=== PATIENT | female | born 2000 | race African-American/Black ===

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

== ENCOUNTER 2022-01-16 08:56 | Emergency (ER) | payer MEDICAID ==
[2022-01-16] MEDS ORDERED: Ondansetron 4 MG/2 ML SDV IVPUSH ONE (09:19)
[2022-01-16] MEDS ORDERED: Sodium Chloride 0.9% 1,000 ML IV ONE (09:19)
[2022-01-16 09:58] LABS: CORONAVIRUS COVID-19 NAA NEGATIVE (NEGATIVE)
== END 2022-01-16 10:17 | disposition home or self-care (01) ==
LOC: VM.ED 08:56
DX: J10.1 Influenza due to other identified influenza virus with other respiratory manifestations (principal); Z20.822 Contact with and (suspected) exposure to COVID-19
CPT/HCPCS: 0240U; 96361; 96374; 99283; 99284-25; J2405; J7030

== ENCOUNTER 2022-01-17 13:23 | Emergency (ER) | payer MEDICAID ==
[2022-01-17] MEDS ORDERED: Sodium Chloride 0.9% 1,000 ML IV ONE (13:45)
[2022-01-17] MEDS ORDERED: Ketorolac 15 MG/ML SDV IVPUSH ONE (13:46)
[2022-01-17] MEDS ORDERED: Ondansetron 4 MG/2 ML SDV IVPUSH ONE (13:49)
[2022-01-17 14:35] LABS: CHLORIDE,CL 101 mmol/L (98-107); SODIUM,NA 137 mmol/L (136-145)
[2022-01-17 14:43] LABS: ANION GAP 15.1 mmol/L (5-15); ESTIMATED GFR 74 mL/min (>=60)
== END 2022-01-17 15:41 | disposition home or self-care (01) ==
LOC: VM.ED 13:23
DX: J10.1 Influenza due to other identified influenza virus with other respiratory manifestations (principal)
CPT/HCPCS: 36415; 80053; 81003; 85025; 86140; 96361; 96374; 96375; 99283; 99284-25; J1885; J2405; J7030

== ENCOUNTER 2022-09-29 18:55 | Emergency (ER) | payer MEDICAID ==
[2022-09-29] MEDS: Sodium Chloride 0.9% 1,000 ML IV ONE (19:30)
[2022-09-29] MEDS: Ondansetron 4 MG/2 ML SDV IVPUSH ONE (19:30)
[2022-09-29 19:33] LABS: BASOPHILS PERCENT AUTO 0.5 % (0.2-1.2); HEMATOCRIT 39.9 % (33.0-47.0); HEMOGLOBIN 14.2 g/dL (12.0-16.0); IMMATURE GRAN ABSOLUTE AUTO 0.02 x10^3/uL (0.00-0.07); LYMPHOCYTES ABSOLUTE AUTO 0.3 x10^3/uL (1.0-4.8); LYMPHOCYTES PERCENT AUTO 4.9 % (25.0-50.0); MEAN CORPUSCULAR HEMOGLOBIN 30.4 pg (26.0-32.0); MEAN CORPUSCULAR HGB CONC 35.6 g/dL (32.0-36.0); MEAN CORPUSCULAR VOLUME 85.4 fL (78.0-93.0); MONOCYTES ABSOLUTE AUTO 0.6 x10^3/uL (0.0-0.8); MONOCYTES PERCENT AUTO 11.6 % (2.0-11.0); NEUTROPHILS ABSOLUTE AUTO 4.6 x10^3/uL (1.8-7.7); NEUTROPHILS PERCENT AUTO 82.6 % (50.0-80.0); PLATELET COUNT,PLT 166 x10^3/uL (130-400); RED BLOOD CELL COUNT 4.67 x10^6/uL (4.00-5.50); WHITE BLOOD CELL COUNT,WBC 5.5 x10^3/uL (4.0-10.0)
[2022-09-29] MEDS: Ibuprofen 200 MG Tab PO ONE (19:34)
[2022-09-29 19:49] LABS: A/G RATIO 1.12; ALBUMIN 3.8 g/dL (3.4-5.0); ANION GAP 20.5 mmol/L (5-15); BILIRUBIN TOTAL 0.8 mg/dL (0.2-1.0); CALCIUM 9.4 mg/dL (8.5-10.1); CREATININE 1.3 mg/dL (0.55-1.02); EST CRCL DRUG DOSING (CG) 56.63 mL/min; POTASSIUM,K 3.5 mmol/L (3.5-5.1); PROTEIN TOTAL,TP 7.2 g/dL (6.4-8.2)
[2022-09-29 20:01] LABS: BILIRUBIN,URINE LARGE (NEGATIVE); COLOR,URINE DARK YELLOW (YELLOW); GLUCOSE,URINE NEGATIVE (NEGATIVE); KETONES,URINE 80 mg/dL (NEGATIVE); LEUKOCYTE ESTERASE,URINE NEGATIVE (NEGATIVE); NITRITE,URINE NEGATIVE (NEGATIVE); OCCULT BLOOD,URINE NEGATIVE (NEGATIVE); PH,URINE >=9.0 (5.0-8.0); PROTEIN,URINE 100 mg/dL (NEGATIVE)
[2022-09-29 20:04] LABS: APPEARANCE,URINE SLIGHTLY CLOUDY (CLEAR)
[2022-09-29 20:10] LABS: BACTERIA,URINE OCCASIONAL /HPF (NOT SEEN); RBC,URINE 0-5 /HPF (NOT SEEN); SQUAMOUS EPITHELIAL CELLS,UR FEW /HPF (NOT SEEN); WBC,URINE 0-5 /HPF (NOT SEEN)
[2022-09-29 20:11] LABS: MUCUS,URINE MODERATE /LPF (NOT SEEN)
[2022-09-29 20:19] LABS: CORONAVIRUS COVID-19 NAA POSITIVE (NEGATIVE); INFLUENZA A NAA NEGATIVE (NEGATIVE); INFLUENZA B NAA NEGATIVE (NEGATIVE); RESPIRATORY SYNCYTIAL VIR NAA NEGATIVE (NEGATIVE)
[2022-09-29] MEDS: Take Home: Ondansetron 4 MG Tab.DIS, 5 Tab Pack PO ONE (21:41)
== END 2022-09-29 22:00 | disposition home or self-care (01) ==
LOC: VM.ED 18:55
DX: U07.1 COVID-19 (principal); Z86.16 Personal history of COVID-19
CPT/HCPCS: 0241U; 71046; 80053; 81001; 83605; 85025; 96361; 96374; 99283; 99284-25; A9270-GY; J2405; J7030; Q0162